=== PATIENT | female | born 1990 | race Caucasian/White ===

== ENCOUNTER 2024-12-21 14:40 | Emergency (ER) | payer BC | END 2024-12-21 15:48 | disposition home or self-care (01) | LOC: BURERS 14:40 | DX: O98.519 Other viral diseases complicating pregnancy, unspecified trimester (principal); U07.1 COVID-19; Z3A.00 Weeks of gestation of pregnancy not specified | CPT/HCPCS: 87081; 87428; 87430; 99283 ==